=== PATIENT | female | born 1970 | race Caucasian/White ===

== ENCOUNTER 2021-02-19 12:15 | Outpatient (CLI) | payer BC, SELFPAY ==
--- NOTE | ~2021-02-19 | US_ITS ---
EXAMINATION: US pelvic complete w TV DATE: 02/19/2021 13:34 INDICATION: Right lower quadrant pain Comparison:02/15/2016 TECHNIQUE: Multiple transabdominal and endovaginal sonographic images of the pelvis performed. FINDINGS: The uterus measures 6.2 x 2.9 x 4 cm. The endometrial complex measures 5 mm. The right ovary measures 1.5 x 0.8 x 1.4 cm and the left ovary measures 1.6 x 1.5 x 0.9 cm. There ar e small follicles in each ovary. Normal doppler signal in both ovaries. There is no free fluid in the pelvis. There are no abnormal masses seen on either side. IMPRESSION: 1. Normal pelvic ultrasound Reviewed, dictated and finalized at location B. IMPRESSION: 1. Normal pelvic ultrasound
== END 2021-02-19 12:16 | disposition home or self-care (01) ==
LOC: ANHIMG 12:18
PROVIDERS: PCP Family Medicine; Visit Provider Physician Assistant
DX: R10.31 Right lower quadrant pain (principal)
CPT/HCPCS: 76830; 76856

== ENCOUNTER 2021-03-14 08:18 | Outpatient (CLI) | payer BC, SELFPAY ==
--- NOTE | ~2021-03-14 | US_ITS ---
EXAMINATION: US right upper quadrant DATE: 03/14/2021 08:43 INDICATION: Right upper quadrant abdominal pain. TECHNIQUE: Multiple grayscale and Doppler ultrasound images of the abdomen were obtained. COMPARISON: Ultrasound 02/15/2016, CT abdomen and pelvis 11/04/2013 FINDINGS: The visualized portions of the head, body, and tail of the pancreas are normal. There is di ffuse hepatic steatosis. No liver surface nodularity. There is normal flow in main portal vein. The g allbladder is normal in size. No gallstones or gallbladder wall thickening. There was no sonographic Peters sign. The common duct is normal and measures 5 mm. IMPRESSION: 1. Diffuse hepatic steatosis. Reviewed, dictated and finalized at location A.
== END 2021-03-14 08:19 | disposition home or self-care (01) ==
LOC: ANHIMG 08:20
PROVIDERS: PCP Family Medicine; Visit Provider Family Medicine
DX: R10.11 Right upper quadrant pain (principal); K76.0 Fatty (change of) liver, not elsewhere classified
CPT/HCPCS: 76705

== ENCOUNTER 2021-09-11 08:08 | Outpatient (CLI) | payer BC, SELFPAY ==
--- NOTE | ~2021-09-11 | MM_ITS ---
EXAMINATION: MM screening nicole BI w carole HISTORY: Screening TECHNIQUE: Craniocaudal and mediolateral oblique 3-D tomosynthesis images were obtained and synthetic 2-D images were generated. CAD analysis was submitted and interpreted. COMPARISON: Comparison to multiple prior studies sequentially, with oldest reviewed study dated 07/15. BREAST PARENCHYMAL COMPOSITION: The breasts are heterogeneously dense, which may obscure small masses . FINDINGS: There is no evidence of suspicious mass, calcification, or architectural distortion to sugg est malignancy in either breast. There has been no suspicious interval change. IMPRESSION: 1. No mammographic evidence of malignancy. 2. Recommend routine screening mammography in one year. BI-RADS Category 1: Negative Reviewed, dictated and finalized at location A. 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
== END 2021-09-11 08:09 | disposition home or self-care (01) ==
LOC: ANHIMG 08:10
PROVIDERS: PCP Family Medicine; Visit Provider Student in an Organized Health Care Education/Training Program
DX: Z12.31 Encounter for screening mammogram for malignant neoplasm of breast (principal)
CPT/HCPCS: 77063; 77067

== ENCOUNTER 2021-09-30 00:31 | Day surgery (SDC) | payer BC, SELFPAY ==
[2021-09-27 11:10] VITALS: BMI 28.4
[2021-09-30 10:29] VITALS: BP 120/59; PULSE 67; RESP 17; TEMP 35.8; O2SAT 98; BMI 28.8
--- NOTE | 2021-09-30 10:34 | P.PNAN_ITS ---
Anes - Initial Pre Proc Eval Procedure: Operation Date: 09/30/21 11:00 Proposed Procedures p Colonoscopy - Deion Cisneros MD Date/Time: 09/30/21 10:34 Surgeon: Deion Cisneros MD Pre Op Diagnosis: constipation Patient Data Age: 51 Gender: F Height: 1.68 m Weight: 80.9 kg Last Vital Signs Temp 35.8 C L 09/30/21 10:29 Pulse 67 09/30/21 10:29 Resp 17 09/30/21 10:29 BP 120/59 L 09/30/21 10:29 Pulse Ox 98 09/30/21 10:29 Allergies Allergy/AdvReac Type Severity Reaction Status Date / Time No Known Allergies Allergy Unknown Verified 09/30/21 10:28 Home Medications Medication Instructions Recorded Confirmed Type No Home Medications 09/27/21 09/30/21 History Patient hx anesthesia problems: none Family hx anesthesia problems: none Results Review: All pre-operative results and documents have been reviewed as part of the pre-operative evaluation. 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 Informed Consent: The patient's anesthetic plan and its attendant risks and benefits were discussed with the patient/family/POA. Questions were solicited and answers provided to the satisfaction of the patient/family/POA.
[2021-09-30] MEDS: LACTATED RINGERS 1,000 ML 150 ML IV CONT (10:39)
--- NOTE | 2021-09-30 10:43 | P.CONGI_ITS ---
Assessment and Plan Assessment and plan (1) RLQ abdominal pain: Code(s): R10.31 - Right lower quadrant pain Status: Acute (2) Change in bowel habit: Code(s): R19.4 - Change in bowel habit Status: Acute Assessment and Plan: Patient has had change in her bowel habits with narrowed stools. Diarrhea alternating with her constipation. She also has vague abdominal pressure and rectal pressure. Colonoscopy to be performed today because of ongoing symptoms. Continue high-fiber diet use of Metamucil is strongly encouraged. GI Consult Note Consult date/time: 09/30/21 10:43 HPI: Geetha Iqbal is a 51 year old female Presents for screening colonoscopy. Patient notices a change in her bowel habits she will now have narrowed stools. Irregular bowel habits with diarrhea alternating with cons tipation. She has rather vague abdominal pain feeling of pressure on her bladder and a PAS sugar on her rectum. She has had no bleeding. She has no weight loss. Colonoscopy 2018 was unremarkable. Patient presents today for follow-up because of these symptoms. 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 Vital signs stable. HEENT exam is unremarkable. Patient is anicteric. Lungs are clear to auscultation and percussion. Heart is without murmur or extra sounds. Abdominal exam bowel sounds are present soft nontender with no organomegaly. Digital external rectal exam is normal.
[2021-09-30 11:05] VITALS: BP 101/77; PULSE 73; RESP 16; O2SAT 98
[2021-09-30 11:15] VITALS: BP 104/70; PULSE 65; RESP 17; O2SAT 99
[2021-09-30 11:25] VITALS: BP 101/65; PULSE 71; RESP 19; O2SAT 99
== END 2021-09-30 11:47 | disposition home or self-care (01) ==
PROVIDERS: PCP Family Medicine; Visit Provider Internal Medicine Gastroenterology
PROC: 0DJD8ZZ Inspection of Lower Intestinal Tract, Via Natural or Artificial Opening Endoscopic (ICD-10-PCS; CPT 45378; principal; 2021-09-30 11:00)
DX: R10.31 Right lower quadrant pain (principal); R19.4 Change in bowel habit; K64.8 Other hemorrhoids; Z72.0 Tobacco use
CPT/HCPCS: 45378; J2001; J2704; J7120

== ENCOUNTER 2023-11-18 08:34 | Emergency (ER) | payer OTHER, BC, SELFPAY ==
--- NOTE | ~2023-11-18 | CT_ITS ---
EXAMINATION: CT cervical spine wo con DATE: 11/18/2023 09:31 INDICATION: Neck pain TECHNIQUE: Computed tomography (CT) of the cervical spine was performed without intravenous contrast. The dose-length product (DLP) was 188.37 mGy-cm. Automated exposure control and iterative reconstruc tion technique were employed. COMPARISON: None FINDINGS: There are 2 mm of retrolisthesis of C5 on C6. There is moderate loss of intervertebral disc space height at C5-6 and C6-7. The vertebral body heights are maintained. The odontoid process is in tact. Small degenerative osteophytes project from the anterior endplates of multiple vertebral bodies . There is no fracture. IMPRESSION: 1. Moderate cervical spondylosis without acute findings. Reviewed, dictated and finalized at location B. 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
--- NOTE | ~2023-11-18 | CT_ITS ---
EXAMINATION: CT brain wo con INDICATION: Headache COMPARISON: 05/05/2007 TECHNIQUE: Standard unenhanced head CT. The dose-length product (DLP) was 605.33 mGy-cm. The mA was a djusted according to patient size. Iterative reconstruction technique was employed. FINDINGS: No intracranial hemorrhage, acute infarction, or abnormal mass lesion. The ventricles are n ormal. There are small areas of prior lacunar infarction in the right basal ganglia. No abnormal mass effect or midline shift. The fenton-white matter differentiation is normal. The basal cisterns are pat ent. The orbits are normal. There is a partial left mastoid effusion. IMPRESSION: 1. No acute intracranial abnormality. Reviewed, dictated and finalized at location B. 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
--- NOTE | ~2023-11-18 | XR_ITS ---
EXAMINATION: XR shoulder LT min 2V, XR shoulder RT min 2V DATE: 11/18/2023 09:40 INDICATION: Bilateral posterior shoulder pain TECHNIQUE: 1. AP internally and externally rotated, AP oblique externally rotated and transscapular Y views of t he left shoulder were obtained. 2. AP internally and externally rotated, AP oblique externally rotated and transscapular Y views of t he right shoulder were obtained. COMPARISON: None FINDINGS: Normal alignment at both shoulders. No fracture. Bilateral glenohumeral and acromioclavicular joint s paces are normal. Mild lower thoracic dextrocurvature with mild spondylosis. Visualized portion of th e lungs are clear with no pleural effusion or pneumothorax. Soft tissues are unremarkable. IMPRESSION: Negative bilateral shoulder radiographs. Reviewed, dictated and finalized at location A. 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
[2023-11-18 08:35] VITALS: BP 147/82; PULSE 76; RESP 20; TEMP 36.4; O2SAT 100
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
[2023-11-18] MEDS: ONDANSETRON HCL ODT 4 MG TABLET PO (09:48)
[2023-11-18] MEDS: ACETAMINOPHEN 500 MG TABLET 1000 MG PO (09:48)
== END 2023-11-18 10:42 | disposition home or self-care (01) ==
PROVIDERS: Emergency Provider Physician Assistant; PCP Family Medicine
DX: S16.1XXA Strain of muscle, fascia and tendon at neck level, initial encounter (principal); M47.812 Spondylosis without myelopathy or radiculopathy, cervical region; F41.9 Anxiety disorder, unspecified; F32.A Depression, unspecified; V43.52XA Car driver injured in collision with other type car in traffic accident, initial encounter
CPT/HCPCS: 70450; 72125; 73030; 99284; A9270; L0140

== ENCOUNTER 2025-03-13 11:38 | Emergency (ER) | payer BC, SELFPAY ==
--- NOTE | ~2025-03-13 | XR_ITS ---
XR foot LT min 3V Ordering provider: Lynette Trivedi APRN History: . pain bruising . Comparison: None. FINDINGS: BONES: Fracture of the fifth metacarpal tarsal bone midshaft. JOINT SPACES: Narrowing of the proximal and distal interphalangeal joints. Osteoarthritic changes of the first metatarsophalangeal joint. No tarsal coalition. Small cystic area in the tip of the distal phalanx of the big toe which may be due to old trauma or may be inflammatory. Similar appearances seen in the tuft of the distal phalanx of the second toe. SOFT TISSUES: Normal. Calcaneal spur. IMPRESSION: Minimally displaced oblique fracture in the midshaft of the fifth metatarsal bone. Reviewed, dictated and finalized at location A. IMPRESSION: Minimally displaced oblique fracture in the midshaft of the fifth metatarsal mana ne.
[2025-03-13 11:49] VITALS: BP 110/70; PULSE 87; RESP 18; TEMP 36.8; O2SAT 97
--- OUTSIDE RECORDS SUMMARY | 2025-03-13 11:58 | XMS_ITS | Clinical Summary ---
Author Organization [facility] Address [address] [place] [address] Phone Care Team Providers Care Refrigeration Mechanic Helper Name Role Phone Merle Eddy Primary Care Provider [phone] Social History Tobacco Use Types Packs/Day Years Used Date Smoking Tobacco: Never Assessed Comments Unknown Sex and Gender Information Value Date Recorded Sex Assigned at Not on file Legal Sex Female 11:44 AM CDT Gender Identity Not on file Sexual Orientation Not on file Plan of Treatment Health Maintenance Due Date Last Done Comments DTAP/TDAP/TD VACCINES (1 - Tdap) 1989 HEPATITIS B VACCINES (1 of 3 - 19+ 3-dose series) 01/1989 HPV/Cotest (21-29) 1991 CERVICAL CANCER SCREENING 2000 HPV/Cotest (30-65) 2000 PAP SMEAR 2000 BREAST CANCER SCREENING 2010 COLORECTAL SCREENING 2015 Colorectal Cancer Screening 2015 FIT-DNA Q 3 years 2015 FIT/FOBT Q 1 year 2015 Flex Sig/CT Colonography Q 5 years 2015 ZOSTER VACCINE (1 of 2) 2020 INFLUENZA VACCINE (#1) 2024 Insurance [employer] BLUE ACCESS/TRUE BLUE PPO Care Teams Refrigeration Mechanic Helper Relationship Specialty Start Date End Date Merle Eddy PA [address] [place] [id number] PCP - General Physician Court Advocate 12/10/21
--- OUTSIDE RECORDS SUMMARY | 2025-03-13 11:58 | XMS_ITS | Data Portability ---
Author Organization [facility] Address [address] [place] [address] Assessment Encounter Date Assessment Date Assessment LastModified by Organization Details LastModified Time 08/02/2020 08/02/2020 Time spent in visit is a total of 26 mins with at least 50% of visit consisting of counseling and review of plan of care. Not available 08/02/2020 12:28:51 Plan of Treatment Reminders Order Date Submit Date Provider Last Modified By Organization Details Last Modified Time Details Appointments None recorded . Lab CBC w/ auto diff 020 08/02/20 [facility] ([facility]), [address] [place] [address] Ctr , [place] [address], [place], [address], 0 10:44:01 CMP, serum or plasma 020 08/02/20 20 [facility] ([facility]), [address] [place] [address], [place], [address], 0 10:44:02 TSH, serum or plasma 020 08/02/20 20 [facility] ([facility]), [address] [place] [address], [place], [address], 0 10:44:03 testoste stephanie, free + total, serum 020 08/02/20 [facility]), [address] [facility] [address], [place], [address], 0 10:44:04 dhea-sul fate, serum 020 08/02/20 [facility] ([facility]), [address] [facility] [address], [place], [address], 0 10:44:04 prolacti n, serum 020 08/02/20 [facility] ([facility]), [address] [facility] [address], [place], [address], 0 10:44:03 estradio l, serum 020 08/02/20 [facility] ([facility]), [address] [place] [address] N[address], [place], [address], 0 10:44:03 Referral None recorded . Procedures None recorded . Surgeries None recorded . Imaging None recorded . Medication Orders None recorded . Patient TargetsNo targets recorded. Patient Instructions Encounter Date Encounter Id Patient Instructions Last Modified By Organization Details Last Modified Time 08/02/2020 [id number] progesterone Not available 08/02/2020 11:52:04 Reason for Referral None Reported. Results Created Date Observation Date Name Description Value Unit Range Abnormal Flag Note LastModifiedBy Organization Detail LastModifiedTime 08/02/20 20 08/03/2020 CBC w/ auto diff WBC 5.3 K/uL 3.8-11 .[address] [facility]) [address] [place] [address] Dr Dhaliwal, [place], [address], 08/06/2020 10:44:01 08/02/20 20 08/03/2020 CBC w/ auto diff red blood cell count (RBC) 4.67 M/mm3 3.60-5 .[address] [facility] ([facility]) [address] [place] [address] Dr Dhaliwal, [place], [address], 08/06/2020 10:44:01 08/02/20 20 08/03/2020 CBC w/ auto diff hemoglobin (HGB) 13.7 gm/dL 11.5-1 5.5 Not Available [facility] ([facility]) [address] [place] [address] Dr Dhaliwal, [place], [address], 08/06/2020 10:44:01 08/02/20 20 08/03/2020 CBC w/ auto diff hematocrit (HCT) 41.2 % 35.2-4 6.4 Not Available [facility] ([facility]) [address] [place] [address] Dr Dhaliwal, [place], [address], 08/06/2020 10:44:01 08/02/20 20 08/03/2020 CBC w/ auto diff MCV 88.2 fL 79.0-9 9.0 Not Available [facility] ([facility]) [address] [place] [address] Dr Dhaliwal, [place], [address], 08/06/2020 10:44:01 08/02/20 20 08/03/2020 CBC w/ auto diff MCH 29.3 pg 26.9-3 5.0 Not Available [facility] ([facility]) [address] [place] [address] Dr Dhaliwal, [place], [address], 08/06/2020 10:44:01 08/02/20 20 08/03/2020 CBC w/ auto diff MCHC 33.3 g/dL 30.4-3 4.8 Not Available [facility] ([facility]) [address] [place] [address] Dr Dhaliwal, [place], [address], 08/06/2020 10:44:01 08/02/20 20 08/03/2020 CBC w/ auto diff RDW 43.9 fL 38.6-5 3.8 Not Available [facility] ([facility]) [address] [place] [address] Dr Dhaliwal, [place], [address], 08/06/2020 10:44:01 08/02/20 20 08/03/2020 CBC w/ auto diff platelet count 160 K/cum m 137-39 7 Not Available [facility] ([facility]) [address] [place] [address] Dr Dhaliwal, [place], [address], 08/06/2020 10:44:01 08/02/20 20 08/03/2020 CBC w/ auto diff neutrophils automated 65.2 % 41.0-7 7.0 Not Available [facility] ([facility]) [address] [place] [address] Dr Dhaliwal, [place], [address], 08/06/2020 10:44:01 08/02/20 20 08/03/2020 CBC w/ auto diff lymphocytes automated 27.1 % 14.0-4 8.0 Not Available [facility] ([facility]) [address] [place] [address] Dr Dhaliwal, [place], [address], 08/06/2020 10:44:01 08/02/20 20 08/03/2020 CBC w/ auto diff monocytes automated 6.0 % 4.0-13 .0 Not Available [facility] ([facility]) [address] [place] [address] Dr Dhaliwal, [place], [address], 08/06/2020 10:44:01 08/02/20 20 08/03/2020 CBC w/ auto diff eosinophils automated 0.9 % 0.0-8. 0 Not Available [facility] ([facility]) [address] [place] [address] Dr Dhaliwal, [place], [address], 08/06/2020 10:44:01 08/02/20 20 08/03/2020 CBC w/ auto diff basophils automated 0.4 % 0.0-1. 5 Not Available [facility] ([facility]) [address] [place] [address] Dr Dhaliwal, [place], [address], 08/06/2020 10:44:01 08/02/20 20 08/03/2020 CBC w/ auto diff immature granulocyte automated 0.4 % 0.0-1. 0 Not Available [facility] ([facility]) [address] [place] [address] Dr Dhaliwal, [place], [address], 08/06/2020 10:44:01 08/02/20 20 08/03/2020 CMP, serum or plasm a sodium 142 mEq/L 135-14 5 Not Available [facility] ([facility]) [address] [place] [address] Dr Dhaliwal, [place], [address], 08/06/2020 10:44:02 08/02/20 20 08/03/2020 CMP, serum or plasm a potassium 4.1 mEq/L 3.5-5. 3 Not Available [facility] ([facility]) [address] [place] [address] Dr Dhaliwal, [place], [address], 08/06/2020 10:44:02 08/02/20 20 08/03/2020 CMP, serum or plasm a chloride 101 mEq/L 97-108 Not Available [facility]) [address] [place] [address] Dr Dhaliwal, [place], [address], 08/06/2020 10:44:02 08/02/20 20 08/03/2020 CMP, serum or plasm a CO2 33 mEq/L 22-32 high Not Available [facility] ([facility]) [address] [place] [address] Dr Dhaliwal, [place], [address], 08/06/2020 10:44:02 08/02/20 20 08/03/2020 CMP, serum or plasm a glucose 75 mg/dL 65-99 Not Available [facility] ([facility]) [address] [place] [address] Dr Dhaliwal, [place], [address], 08/06/2020 10:44:02 08/02/20 20 08/03/2020 CMP, serum or plasm a BUN 13 mg/dL 6-20 Not Available [facility] ([facility]) [address] [place] [address] Dr Dhaliwal, [place], [address], 08/06/2020 10:44:02 08/02/20 20 08/03/2020 CMP, serum or plasm a creatinine 0.75 mg/dL 0.50-1 .00 Not Available [facility] ([facility]) [address] [place] [address] Dr Dhaliwal, [place], [address], 08/06/2020 10:44:02 08/02/20 20 08/03/2020 CMP, serum or plasm a calcium 9.6 mg/dL 8.6-10 .4 Not Available [facility] ([facility]) [address] [place] [address] Dr [address]haliwal, [place], [address], 08/06/2020 10:44:02 08/02/20 20 08/03/2020 CMP, serum or plasm a protein 6.7 g/dL 6.0-8. 3 Not Available [facility] ([facility]) [address] [place] [address] Dr Dhaliwal, [place], [address], 08/06/2020 10:44:02 08/02/20 20 08/03/2020 CMP, serum or plasm a albumin 4.7 g/dL 3.5-5. 3 Not Available [facility] ([facility]) [address] [place] [address] Dr Dhaliwal, [place], [address], 08/06/2020 10:44:02 08/02/20 20 08/03/2020 CMP, serum or plasm a alkaline phosphatase 103 IU/L 35-121 Not Available [facility] ([facility]) [address] [place] [address] Dr Dhaliwal, [place], [address], 08/06/2020 10:44:02 08/02/20 20 08/03/2020 CMP, serum or plasm a ALT (SGPT) 32 IU/L <5-47 Not Available [facility] ([facility]) [address] [place] [address] Dr Dhaliwal, [place], [address], 08/06/2020 10:44:02 08/02/20 20 08/03/2020 CMP, serum or plasm a AST (SGOT) 19 IU/L <5-40 Not Available [facility]) [address] [place] [address] Dr Dhaliwal, [place], [address], 08/06/2020 10:44:02 08/02/20 20 08/03/2020 CMP, serum or plasm a bilirubin, total 0.4 mg/dL <0.2-1 .2 Not Available [facility] ([facility]) [address] [place] [address] Dr Dhaliwal, [place], [address], 08/06/2020 10:44:02 08/02/20 20 08/03/2020 CMP, serum or plasm a A/G ratio 2.4 mg/dL 1.1-2. [address] [facility] ([facility]) [address] [place] [address] Dr Dhaliwal, [place], [address], 08/06/2020 10:44:02 08/02/20 20 08/03/2020 GFR, estim ated (eGFR ), serum estimated GFR (black) 107 mL/mi n/1.7 3m2 >59 Not Available [facility]) [address] [place] [address] Dr [address]haliwal, [place], [address], 08/06/2020 10:44:02 08/02/20 20 08/03/2020 GFR, estim ated (eGFR ), serum estimated GFR (other) 93 mL/mi n/1.7 3m2 >59 GFR Categ ories in Chron ic Kidne y Disea se (CKD) GFR Categ ory GFR (mL/m in/1. 73 sq. meter s) Inter preta tion G1 90 or great er Nikki l or high* G2 60-89 Mild decre ase* G3a 45-59 Mild to moder ate decre ase G3b 30-44 Moder ate to sever e decre ase G4 15-29 Sever e decre ase G5 14 or less Kidne y failu re *In the absen ce of octaviano farooqag e, neith er GFR categ ory G1 or G2 fulfi ll the crite jhonatan for CKD (Velasquez ey Int Suppl 2013; 3.1-1 50) The CKD-E PI calcu latio n is inten ded for use in patie nts 18 years of age and older . Decre ased calcu latio n accur acy may be seen in patie nts takin g medic ation s that affec t renal excre tion, or in those patie nts with extre mes in muscl e mass or diet. Not Available [facility] ([facility]) [address] [place] [address] Dr Dhaliwal, [place], [address], 08/06/2020 10:44:02 08/02/20 20 08/03/2020 prola ctin, serum prolactin 6.63 NG/mL 4.79-2 3.30 Not Available [facility] ([facility]) [address] [place] [address] Dr Dhaliwal, [place], [address], 08/06/2020 10:44:03 08/02/20 20 08/03/2020 estra diol, serum estradiol 12 pg/mL Estra diol Refer ence Range Healt hy women Folli cular phase 12.4 - 233 Ovula tion phase 41.0 - 398 Lutea l phase 22.3 - 341 Postm enopa use <5 - 138 Healt hy pregn ant women 1st trime ster 154 - 3243 2nd trime ster 1561 - 96202 3rd trime ster 8525 - >3000 0 Not Available [facility] ([facility]) [address] [place] [address] Dr Dhaliwal, [place], [address], 08/06/2020 10:44:03 08/02/20 20 08/03/2020 TSH, serum or plasm a TSH reflex to FT4 1.08 mU/L 0.27-4 .20 Not Available [facility]) [facility] [address]hali[address], [place], [address], 08/06/2020 10:44:03 08/02/20 20 08/03/2020 dhea- sulfa te, serum DHEA-sulfate 166 ug/dL 35-256 Not Available [facility] randy [facility] ([facility]) [facility] Dr [address]haliwal, [place], [address], 08/06/2020 10:44:04 08/02/2008/03/2020 testo stero ne, free + total , serum sex hormone binding globulin (shbg) 28.6 nmol/ L 17.3-1 25.0 STAGE MALE FEMAL E Tanne r Stage I: 26-18 6 nmol/ L 30-17 3 nmol/ L Tanne r Stage II: 22-16 9 nmol/ L 16-12 7 nmol/ L Tanne r Stage III: 13-10 4 nmol/ L 12-98 nmol/ L Tanne r Stage IV: 11-60 nmol/ L 14-15 1 nmol/ L Tanne r Stage V: 11-71 nmol/ L 23-16 5 nmol/ L Not Available [facility] ([facility]) [facility] Dr Dhaliwal, [place], [address], 08/06/2020 10:44:04 08/02/2008/06/2020 testo stero ne, free + total , serum testosterone , total (female and children) 26.5 NG/dL 10.0-5 2.0 Preme nopau lore 10-52 ng/dL (Grea ter than 18 years ) Postm enopa usal 6-30 ng/dL This test was devel oped and its perfo rmanc e lucy cteri stics were deter mined by [facility]. It has not been clear ed or appro claire by the FDA. The labor atory is regul ated under CLIA as quali fied to perfo rm high- compl exity testi ng. This test is used for clini anny purpo ses and shoul d not be regar ded as inves tigat ional or for resea rch. Not Available [facility]) [address] [facility] [address], [place], [address], 08/06/2020 10:44:04 08/02/20 20 08/06/2020 testo stero ne, free + total , serum testosterone free, females or children 4.9 pg/mL 1.2-7. 1 Postm enopa usal 0.6-4 .6 pg/mL The sue ntrat ions of free and bioav ailab le testo stero ne are deriv ed from donna crump al expre ssion s based on const ants for the ela ng of testo stero ne to album in and/o r sex hormo ne ela ng globu hakan. These calcu lated value s may be less accur ate in patie nts with very low album in sue ntrat ions. Not Available [facility]) [address] [facility] [address], [place], [address], 08/06/2020 10:44:04 Result Notes None recorded. Problems Name Problem SNOMED Code Status Onset Date Resolution Date Notes Provider Name and Address Organization Details Recorded Time Postmenop ausal bleeding 09292156 Active 2017 Postmenopa usal bleeding;R ecorded Elsewhere: No Locatio n: 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 rce: EHR Chroni c: N Practice ID: 0001 Billa ble Time: 09:30:00 AM Not Available [facility] 0 21:48:34 Menopausa l symptom 53943100 Active 2013 Menopausal or female climacteri c states;Rec orded Elsewhere: No Locatio n: [facility] rce: EHR Chroni c: N Practice ID: 0001 Billa ble Time: 02:00:00 PM Not Available [facility] 0 21:48:[address] Concept Active 2018 Encntr for general adult medical exam w/o abnormal findings;R ecorded Elsewhere: No Locatio n: [facility] rce: EHR Chroni c: N Practice ID: 0001 Billa ble Time: 09:30:00 AM Not Available [facility] 0 21:48:34 Acne 03835017 Active 2012 Other acne;Recor ded Elsewhere: No Locatio n: [facility] rce: EHR Chroni c: N Practice ID: 0001 Billa ble Time: 11:00:00 AM Not Available [facility] 0 21:48:34 Specializ ed medical examinati on Active 2012 Gynecologi anny Examinatio n;Recorded Elsewhere: No Locatio n: [facility] rce: EHR Chroni c: N Practice ID: 0001 Billa ble Time: 11:00:00 AM Not Available [facility] 0 21:48:34 Hirsutism 760552799 Active 2012 Hirsutism; Recorded Elsewhere: No Locatio n: [facility] rce: EHR Chroni c: N Practice ID: 0001 Billa ble Time: 11:00:00 AM Not Available [facility] 0 21:48:34 Screening for malignant neoplasm of rectum Active 2014 Encounter for screening for malignant neoplasm of rectum;Rec orded Elsewhere: No Locatio n: [facility] rce: EHR Chroni c: N Practice ID: 0001 Billa ble Time: 11:30:00 AM Not Available [facility] 0 21:48:34 Pelvic and perineal pain 710514039 Active 2014 Pelvic pain;Recor ded Elsewhere: No Locatio n: [facility] rce: EHR Chroni c: N Practice ID: 0001 Billa ble Time: 11:30:00 AM Not Available [facility] 0 21:48:35 Menopause present 186426185 Active 2016 Symptoms such as flushing, sleeplessn ess, headache, lack of concentrat ion, associated with natural (age-relat ed) menopause; Recorded Elsewhere: No Locatio n: [facility] rce: EHR Chroni c: N Practice ID: 0001 Billa ble Time: 08:30:00 AM Not Available [facility] 0 21:48:35 Depressiv e disorder 97279438 Active 2011 Depressive disorder, not elsewhere classified ;Practice ID: 0001 Not Available [facility] 0 21:48:35 Breast lump 25700054 Active 2011 Lump or mass in breast;Pra ctice ID: 0001 Not Available [facility] 0 21:48:35 Screening for malignant neoplasm of cervix Active 2012 Pap Smear;Prac cheko ID: 0001 Not Available [facility] 0 21:48:36 Adult health examinati on Active 2013 Routine general medical examinatio n at a health care facility;Diamante buckley ID: 0001 Not Available [facility] 0 21:48:[address] Concept Active 2014 Well woman check w/ abnormal finding;Re corded Elsewhere: No Locatio n: [facility] rce: EHR Chroni c: N Practice ID: 0001 Billa ble Time: 11:30:00 AM Not Available [facility] 0 21:48:37 Generaliz ed anxiety disorder 35671977 Active 2011 Generalize d anxiety disorder;P ractice ID: 0001 Not Available [facility] 0 21:48:39 Problem Notes None recorded. Medical Equipment None Reported. Allergies No known drug allergies Medications Name Sig Start Date Stop Date Status Note LastModified by Organization Details LastModified Time amoxicill in 500 mg capsule TK ONE C PO TID TAT 08/02 completed Not Available Not Available Not Available azithromy yamileth 250 mg tablet TK 2 TS PO FOR 1 DAY THEN TK 1 T PO D FOR 4 DAYS 08/02 completed Not Available Not Available Not Available Prozac 40 mg capsule take 1 capsule (40MG) by oral route every day in the morning 08/03 completed Prescrib ed Elsewher e: No Locat ion: [facility] odify By: junior chowdhury DateTime : 08/18/20 13 10:00:00 AM Not Available Not Available Not Available metronida zole 500 mg tablet TK 1 T PO BID UNTIL GONE 08/02 completed Not Available Not Available Not Available spironola ctone 25 mg tablet take 1 tablet (25MG) by oral route every day 10/27 completed Prescrib ed Elsewher e: No Locat ion: [facility] By: chandana Lafleur nter DateTime : 08/18/20 13 10:00:00 AM Not Available Not Available Not Available amoxicill in 500 mg tablet take 1 tablet (500MG) by oral route every 8 hours 02/23 completed Prescrib ed Elsewher e: No Locat ion: [facility]ify By: junior chowdhury DateTime : 02/17/20 12 03:00:00 PM Not Available Not Available Not Available Prozac 20 mg capsule take 1 capsule (20MG) by oral route every day in the morning 02/16 completed Prescrib ed Elsewher e: No Locat ion: [facility] By: chandana Lafleur ntfausto DateTime : 02/17/20 12 03:00:00 PM Not Available Not Available Not Available bupropion HCl 75 mg tablet take 1 tablet by oral route 3 times every day 2018 active Prescrib ed Elsewher e: Yes Loca tion: [facility] odify By: elma Ness ncountfausto DateTime : 03/08/20 19 09:30:00 AM Not Available Not Available Not Available zolpidem 5 mg tablet TK 1 T PO QD HS 08/02 completed Not Available Not Available Not Available spironola ctone 50 mg tablet take 1 tablet by oral route every day 03/08 completed Prescrib ed Elsewher e: No Locat ion: [facility] odify By: amlouis Gerardo josephunter DateTime : 02/26/20 18 08:00:00 AM Not Available Not Available Not Available Prempro 0.45 mg-1.5 mg tablet take 1 tablet by oral route every day 03/08 completed Prescrib ed Elsewher e: No Locat ion: [facility] odify By: amlouis Gerardo ncounter DateTime : 09/19/19 17 08:30:00 AM Not Available Not Available Not Available bupropion HCl XL 300 mg 24 hr tablet, extended release TK 1 T PO QD IN THE MORNING 08/02 completed Not Available Not Available Not Available Viibryd 20 mg tablet take 2 tablet (40MG) by oral route every day with food 08/18 completed Prescrib ed Elsewher e: No Locat ion: [facility] odify By: cmedical Encount er DateTime : 02/24/20 13 11:00:00 AM Not Available Not Available Not Available desvenlaf axine ER 100 mg tablet,ex tended release 24 hr TK 1 T PO QD 08/02 completed Not Available Not Available Not Available Vitals Date Recorded Body height Body mass index (BMI) Body weight Systolic blood pressure Diastolic blood pressure Provider Name and Address Organization Details Last Updated DateTime 08/02/2020 167.64 cm 31 kg/m2 31886.74 g 138 mm[Hg] 86 mm[Hg] Yamila Soria [facility] 0 11:31:00 Social History None recorded. Functional Status None recorded. Mental Status None recorded. Family History Nothing Reported Notes:Maternal grandmother: Cancer, breast Mother: Cancer, breast Medical History No medical history recorded. Gynecological HistoryNo gynecological history recorded. Obstetrics History GPAL:G 0 P 0 0 0 0 Past Encounters Encounter ID Performer Location Encounter Start Date Encounter Closed Date Diagnosis/Indication Diagnosis SNOMED-CT Code Diagnosis ICD10 Code Diagnosis Note [id number] Viry Rivas [facility] [address] [address] 08/02/2020 11:23:38 08/02/2020 12:35:20 Dyspareunia [id number] N94.10 - Patient to try vaginal moisturizi ng routine with a vegetable based moisturize r, educated patient to use this as her lubricate during intercours e to help with pain upon entry, VCG sheet given to patient to take home -Advised patient to switch to free and clear laundry detergent, as her current products could be causing vaginal irritation -Patient to try moisturizi ng routine and RTC in 60 days to assess how she is doing, further treatment therapies will be discussed at this time Questionab le vestibulit is vs postmenopa usal changes or both. Loss of hair [id number] L 65.9 -Hair loss for the past few months, patient states she had COVID in April, educated that body could of been under stress with that and that could cause some hair loss -Will check labs today, will follow-up with results and any treatments if necessary Health Concerns Section Related Observation LastModified by Organization Detai ls LastModified Time None Recorded Concern Status LastModified by Organization Details LastModified Time None Recorded Advance Directives Directive None Recorded Payers Insurance Date Sequence Insurance Name Policy Number Policy Luna Covered Member ID Luna Member ID Guarantor Name 08/02/2020 1 [facility] [id number] Rylan Iqbal [id number] Geetha Iqbal Notes Date Note Type Note Provider Name and Address Organization Details Recorded Time 0 text/html DyspareuniaReported bypatient.Location:vagin a Discharge:no fishy odor; no thick vaginal discharge; no watery vaginal discharge Vulva Pain:no pain; no lesion Pelvic Pain:no pain Abdominal Pain:no pain Dysparuniadysparunia bilateral;with insertion; Patient states she has pain with intercourse during insertion. States she feels the pain only upon entry and then the pain goes away. She denies dryness or use of any products. Onset/Timing:days; recurring Associated Symptoms:no fever; no vaginal bleeding; no vomiting Context:sexually active; menopause Viry Rivas, MARANDA- [address], [place], [address], [place] - [facility] 08/02/2020 12:29:50 OBGyn Episode No OBEpisode recorded.
--- NOTE | 2025-03-13 12:08 | ED_ITS ---
HPI - Extremity Injury (Lower) General Chief Complaint: Extremity Injury, Lower Stated Complaint: lt foot injury Source: patient Mode of arrival: ambulatory Limitations: no limitations History of Present Illness HPI Narrative: 54 y/o female presented for c/o left foot pain, swelling and bruising. Onset 3 days. Says when she stood up while the foot was asleep she felt a painful pop near the toes on the top of the foot. Has been able to bear weight but reports pain. Taking aspirin and applying ice. Related Data Home Medications ?Medication ?Instructions ?Recorded ?Confirmed ?Last Taken ?Type No Home Medications 03/13/25 03/13/25 Unknown History Allergies Allergy/AdvReac Type Severity Reaction Status Date / Time No Known Allergies Allergy Unknown Verified 03/13/25 12:51 Review of Systems Review of Systems: CONSTITUTIONAL: Denies body aches, fever, chills EYES: Denies visual changes ENT: Denies rhinorrhea, congestion CARDIOVASCULAR: Denies chest pain, palpitations, or edema. RESPIRATORY: Denies cough or dyspnea. SKIN: Denies rash, itching, or wounds. MUSCULOSKELETAL: reports left foot pain, bruising and swelling. NEUROLOGIC: Denies headache, numbness, tingling, or weakness. All systems reviewed & are unremarkable except as noted in HPI and below PMFSH Past Medical History Medical History Insomnia Hyperlipidemia, mixed Screening mammogram, encounter for Attention deficit disorder Anxiety Depression Hypothyroidism Surgical History Surgical History History of tubal ligation History of delivery 1997, 1999 Family History Family History Father Heart disease Social History Social History Years smoked: 20 Smoking status: Former smoker Tobacco type: cigarettes Second hand tobacco smoke exposure: No Additional smoking assessment comments: not a daily smoker, only occasional if out for drinks Alcohol intake: current Alcohol use details: occasional Substance use: never Substance use type: does not use Do You Feel Safe in your Home?: Yes Lack of Transportation: No Lack of Food: Never True Current Housing: I Have Housing Concerned About Future Housing: No Difficulty Paying Gas/Electric Bills: No Difficulty Paying for Meds: No Currently Unemployed: No Education: Bachelor's Degree Difficulty w/ Childcare or Family Care: No Living arrangements: with family Additional living arrangements comments: Occupation/Education: occupation 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 Please see nursing chart for further information. There is no relevant family history pertinent to the presenting complaint Exam Narrative: GENERAL: Well-appearing CHEST: Speaks in full sentences. No respiratory distress. HEART: Regular rate and rhythm. Normal and equal peripheral pulses. EXTREMITIES: Left foot dorsal surface with moderate swelling extending to the lateral ankle. Bruising noted to the lateral ankle and 2nd through 4th toes; Tender with light palpation towards the distal metatarsals. normal strength and sensation to the toes. Endorses pain with any range of motion. No open wounds. pulse palpable and equal bilaterally, skin warm, dry, pink. Capillary refill less than 3 seconds. SKIN: Warm, dry, no rash. NEURO: Alert and oriented x3. PSYCH: Normal mood and affect Course Course Emergency Course: Patient is aware of diagnosis, understands and agrees to treatment plan. Anticipatory guidance given. Patient agrees to follow-up as directed and is aware of reasons to seek care at the emergency department. Portions of this record may have been created with voice recognition software Level of Care: Express Care Visit Vital Signs Vital signs: Vital Signs Temperature 98.3 F 03/13/25 11:49 Pulse Rate 87 03/13/25 11:49 Respiratory Rate 18 03/13/25 11:49 Blood Pressure 110/70 03/13/25 11:49 Pulse Oximetry 97 03/13/25 11:49 Oxygen Delivery Room Air 03/13/25 11:49 Temperature 98.3 F 03/13/25 11:49 Pulse Rate 87 03/13/25 11:49 Respiratory Rate 18 03/13/25 11:49 Blood Pressure 110/70 03/13/25 11:49 Pulse Oximetry 97 03/13/25 11:49 Oxygen Delivery Room Air 03/13/25 11:49 Reviewed Procedures Orthopedic Splinting/Casting left foot: Splinting/Casting Date: 03/13/25 OCL: posterior Pre-Procedure Neuro Vascular Exam: normal Post-Procedure Neuro Vascular Exam: normal Other Orthopedic Equipment: crutches MDM - Extremity Injury (Lower) MDM Narrative Medical decision making narrative: Discussed physical exam findings and xray. OCL and crutch training provided. Pt declined pain medication. Advised supportive measures and signs/symptoms to go to the ER. Pt is appropriate for outpt treatment and f/u. Differential Diagnosis Differential diagnosis: Likely ankle sprain and strain, fracture of toe, ankle fracture and other (foot fracture, sprain, contusion) Imaging Data Radiologist's impression: Patient: Geetha Iqbal : 1970 MR#: [id number] Age: 54 Acct:[id number] Loc: [facility] ADM Date: 03/13/25Attending Dr: JENNI foot LT min 3V Ordering provider: Lynette Trivedi APRN History: . pain bruising . Comparison: None. FINDINGS: BONES: Fracture of the fifth metacarpal tarsal bone midshaft. JOINT SPACES: Narrowing of the proximal and distal interphalangeal joints. Osteoarthritic changes of the first metatarsophalangeal joint. No tarsal coalition. Small cystic area in the tip of the distal phalanx of the big toe which may be due to old trauma or may be inflammatory. Similar appearances seen in the tuft of the distal phalanx of the second toe. SOFT TISSUES: Normal. Calcaneal spur. IMPRESSION: Minimally displaced oblique fracture in the midshaft of the fifth metatarsal bone. Discharge Plan Discharge Clinical Impression: Metatarsal fracture Qualifiers: Encounter type: initial encounter Metatarsal bone: fifth Fracture type: closed Fracture alignment: displaced Laterality: left Qualified Code(s): S92.352A - Displaced fracture of fifth metatarsal bone, left foot, initial encounter for closed fracture Patient Disposition: Home Condition: Stable Instructions: Antibiotic Form, Foot Fracture in Adults (ED), Splint Care (ED) Additional Instructions: Rest, ice and elevate the left foot Motrin 600mg every 8 hours, as needed, for pain (take with food). Tylenol 1000mg every 8 hours. Keep splint clean, dry and in place. Use garbage bag while showering to keep splint dry. Use crutches, do not bear weight on the splint. Go to the ER immediately for increased pain, tingling/numbness, swelling, redness, etc Follow up with Orthopedic Surgery in 2 days for further evaluation - please call today for an appointment. Patient Language: [place] Prescriptions: No Action No Home Medications Follow-up/Referrals: Aidan Haynes MD [Physician] - UNKNOWN,DOCTOR [Primary Care Provider] -
== END 2025-03-13 13:25 | disposition home or self-care (01) ==
PROVIDERS: Emergency Provider Nurse Practitioner Family
DX: S92.352A Displaced fracture of fifth metatarsal bone, left foot, initial encounter for closed fracture (principal); X58.XXXA Exposure to other specified factors, initial encounter; E78.5 Hyperlipidemia, unspecified; E03.9 Hypothyroidism, unspecified
CPT/HCPCS: 29515; 73630; 99214; G0463